=== PATIENT | male | born 1970 | race Caucasian/White ===

== ENCOUNTER 2024-06-26 22:04 | Emergency (ER) | payer SELFPAY ==
[~2024-06-26] VITALS: Ht 165.1 cm; Wt 82.0 kg
[2024-06-26 23:08] VITALS: BP 106/82; PULSE 69; RESP 15; TEMP 98.1; O2SAT 98
[2024-06-27] MEDS ORDERED: CYCLOBENZAPRINE 10MG TABLET PO ONE (00:30)
[2024-06-27] MEDS ORDERED: KETOROLAC 30MG/ML VIAL IM ONE (00:30)
[2024-06-27] MEDS ORDERED: CYCL10TA21 MT (01:47)
[2024-06-27] MEDS ORDERED: NAPR-1176 MT (01:47)
[2024-06-27] MEDS: KETOROLAC 30MG/ML VIAL IM NR (02:17)
[2024-06-27] MEDS: CYCLOBENZAPRINE 10MG TABLET PO NR (02:17)
== END 2024-06-27 02:19 | disposition home or self-care (01) ==
LOC: ER 22:04
DX: M54.2 Cervicalgia (principal); M54.50 Low back pain, unspecified; Z98.890 Other specified postprocedural states
CPT/HCPCS: 99283; 96372; J1885